=== PATIENT | male | born 1970 | race Two or more races ===

== ENCOUNTER 2018-05-06 18:11 | Emergency (ER) | payer BC ==
[~2018-05-06] VITALS: Ht 177.8 cm; Wt 90.7 kg
[2018-05-06 18:15] VITALS: BP 129/66
--- NOTE | 2018-05-06 18:21 | Emergency Room Report ---
History of Present Illness General Chief Complaint: Abdominal Pain Source: Patient, EMS Present Illness HPI Patient presents with complaints of right-sided flank pain radiation to the lower abdomen Pain came on several hours prior to arrival however has intensified sharp 10 out of 10 with radiation as noted Denies any vomiting but does feel mildly nauseous denies any diarrhea denies any fevers or chills denies any dysuria frequency Patient has not had pain like this before Denies any change with position Allergies: Coded Allergies: No Known Allergies (Unverified , 05/06/18) Patient History Past Medical History: see triage record Pertinent Family History: none Reviewed Nursing Documentation: PMH: Agreed; PSxH: Agreed Nursing Documentation-PMH Past Medical History: No Stated History Review of Systems All Other Systems: negative except mentioned in HPI Physical Exam Vital Signs Date Time Temp Pulse Resp B/P (MAP) Pulse Ox O2 Delivery O2 Flow Rate FiO2 05/06/18 18:07 97.9 62 18 142/77 98 Room Air 97.9 Sp02 EP Interpretation: reviewed, normal General Appearance: moderate distress - In acute pain Head: normocephalic, atraumatic Eyes: bilateral eye PERRL, bilateral eye EOMI ENT: hearing grossly normal, normal pharynx Neck: supple, thyroid normal Respiratory: chest non-tender, lungs clear Cardiovascular #1: regular rate, rhythm Gastrointestinal: non tender, soft, other - Subjectively points to the right lower flank region with radiation to the mid abdomen Musculoskeletal: normal inspection Neurologic: alert, oriented x3, responsive Skin: normal color, no rash Lymphatic: no adenopathy Medical Decision Making Diagnostic Impression: Primary Impression: Renal colic on right side ER Course With the history exam and presentation, multiple differentials considered, including but not limited to appendicitis, gastritis, cholecystitis, diverticulitis Patient had CT imaging done which does show a right-sided 2.6 mm UVJ stone on the right side this is causing some hydronephrosis Patient's blood work performed Creatinine level was mildly elevated at 1.6 Patient at this time resting comfortably and significantly improved Given the size and location of the stone, Given the patient's improved status with pain,patient will have initial conservative outpatient trial Was provided with referral to urology If there is any increased pain or discomfort patient understands to return to the emergency room Labs Test 05/06/18 18:16 White Blood Count 10.7 K/UL (4.8-10.8) Red Blood Count 5.07 M/UL (4.70-6.10) Hemoglobin 15.6 G/DL (14.2-18.0) Hematocrit 45.7 % (42.0-52.0) Mean Corpuscular Volume 90 FL (80-99) Mean Corpuscular Hemoglobin 30.8 PG (27.0-31.0) Mean Corpuscular Hemoglobin Concent 34.1 G/DL (32.0-36.0) Red Cell Distribution Width 11.0 % (11.6-14.8) Platelet Count 266 K/UL (150-450) Mean Platelet Volume 7.3 FL (6.5-10.1) Neutrophils (%) (Auto) 85.1 % (45.0-75.0) Lymphocytes (%) (Auto) 12.4 % (20.0-45.0) Monocytes (%) (Auto) 1.8 % (1.0-10.0) Eosinophils (%) (Auto) 0.1 % (0.0-3.0) Basophils (%) (Auto) 0.6 % (0.0-2.0) Urine Color Yellow Urine Appearance Clear Urine pH 5 (4.5-8.0) Urine Specific [place] 1.025 (1.005-1.035) Urine Protein 1+ (NEGATIVE) Urine Glucose (UA) Negative (NEGATIVE) Urine Ketones 2+ (NEGATIVE) Urine Occult Blood 4+ (NEGATIVE) Urine Nitrite Negative (NEGATIVE) Urine Bilirubin Negative (NEGATIVE) Urine Urobilinogen Normal MG/DL (0.0-1.0) Urine Leukocyte Esterase Negative (NEGATIVE) Urine RBC 5-10 /HPF (0 - 0) Urine WBC 0-2 /HPF (0 - 0) Urine Squamous Epithelial Cells None /LPF (NONE/OCC) Urine Bacteria Occasional /HPF (NONE) Sodium Level 140 MMOL/L (136-145) Potassium Level 3.6 MMOL/L (3.5-5.1) Chloride Level 103 MMOL/L (98-107) Carbon Dioxide Level 20 MMOL/L (21-32) Anion Gap 17 mmol/L (5-15) Blood Urea Nitrogen 12 mg/dL (7-18) Creatinine 1.6 MG/DL (0.55-1.30) Estimat Glomerular Filtration Rate 46.6 mL/min (>60) Glucose Level 127 MG/DL (74-106) Calcium Level 9.5 MG/DL (8.5-10.1) Total Bilirubin 0.3 MG/DL (0.2-1.0) Aspartate Amino Transf (AST/SGOT) 31 U/L (15-37) Alanine Aminotransferase (ALT/SGPT) 71 U/L (12-78) Alkaline Phosphatase 50 U/L (46-116) Total Protein 8.3 G/DL (6.4-8.2) Albumin 4.4 G/DL (3.4-5.0) Globulin 3.9 g/dL Albumin/Globulin Ratio 1.1 (1.0-2.7) Lipase 169 U/L (73-393) CT/MRI/US Diagnostic Results CT/MRI/US Diagnostic Results : Impression CT abdomen pelvis: Right-sided UVJ stone 2.6 mm right-sided hydronephrosis Last Vital Signs Date Time Temp Pulse Resp B/P (MAP) Pulse Ox O2 Delivery O2 Flow Rate FiO2 05/06/18 18:07 97.9 62 18 142/77 98 Room Air 97.9 Status: improved Disposition: HOME, SELF-CARE Condition: Improved Scripts Tamsulosin Hcl (TAMSULOSIN HCL*) 0.4 Mg Cap.er.24h 0.4 MG ORAL BEDTIME, #6 CAP Prov: Yosi Grullon DO 05/06/18 Acetaminophen With Codeine (T#3) (TYLENOL #3 TAB*) Y Tab 1 TAB ORAL Q8H PRN for For Pain, #15 TAB Prov: Yosi Grullon DO 05/06/18 Ibuprofen* (MOTRIN*) 600 Mg Tablet 600 MG ORAL Q8H PRN for For Pain, #20 TAB 0 Refills Prov: Yosi Grullon DO 05/06/18 Additional Instructions: Patient is provided with the discharge instructions notified to follow up with primary doctor in the next 2-3 days otherwise return to the er with any worsening symptoms. Please note that this report is being documented using [employer] technology. This can lead to erroneous entry secondary to incorrect interpretation by the dictating instrument. Yosi Grullon DO May 06, 2018 18:21
[2018-05-06] MEDS ORDERED: Ketorolac 30mg Inj IV ONE ×2 (18:30→19:30)
[2018-05-06] MEDS ORDERED: Morphine Sulfate 4mg/ml Inj (IV USE ONLY) IVP ONE (18:30)
[2018-05-06 18:42] LABS: APPEARANCE,URINE CLEAR; BILIRUBIN, URINE NEGATIVE (NEGATIVE); GLUCOSE, URINE (UA) NEGATIVE (NEGATIVE); KETONES,URINE 2+ (NEGATIVE); LEUKOCYTE ESTERASE ,URINE NEGATIVE (NEGATIVE); NITRITE,URINE NEGATIVE (NEGATIVE); PH,URINE 5 (4.5-8.0); PROTEIN,URINE 1+ (NEGATIVE); UROBILINOGEN,URINE NORMAL MG/DL (0.0-1.0)
[2018-05-06 18:45] LABS: COLOR,URINE YELLOW
[2018-05-06 18:55] LABS: HEMATOCRIT 45.7 % (42.0-52.0); HEMOGLOBIN 15.6 G/DL (14.2-18.0); MEAN CORPUSCULAR VOLUME 90 FL (80-99); PLATELET COUNT 266 K/UL (150-450); RED BLOOD COUNT 5.07 M/UL (4.70-6.10); WHITE BLOOD COUNT 10.7 K/UL (4.8-10.8)
[2018-05-06 18:56] LABS: BASOPHILS % (AUTO) 0.6 % (0.0-2.0); EOSINOPHILS % (AUTO) 0.1 % (0.0-3.0); LYMPHOCYTES % (AUTO) 12.4 % (20.0-45.0); MONOCYTES % (AUTO) 1.8 % (1.0-10.0); NEUTROPHILS % (AUTO) 85.1 % (45.0-75.0)
[2018-05-06 19:05] LABS: ANION GAP 17 mmol/L (5-15); BLOOD UREA NITROGEN 12 mg/dL (7-18); CALCIUM 9.5 MG/DL (8.5-10.1); CARBON DIOXIDE 20 MMOL/L (21-32); CHLORIDE 103 MMOL/L (98-107); CREATININE 1.6 MG/DL (0.55-1.30); POTASSIUM 3.6 MMOL/L (3.5-5.1); SODIUM 140 MMOL/L (136-145)
[2018-05-06 19:10] LABS: ALANINE AMINOTRANSFERASE 71 U/L (12-78); ALBUMIN 4.4 G/DL (3.4-5.0); ALBUMIN/GLOBULIN RATIO 1.1 (1.0-2.7); ALKALINE PHOSPHATASE 50 U/L (46-116); ASPARTATE AMINO TRANSFERASE 31 U/L (15-37); BILIRUBIN,TOTAL 0.3 MG/DL (0.2-1.0)
[2018-05-06 19:17] VITALS: BP 123/64
[2018-05-06] MEDS ORDERED: HYDROmorphone 1mg/ml Carpuject IVP ONE ×2 (19:30)
[2018-05-06] MEDS ORDERED: Tamsulosin 0.4mg cap ORAL ONE (19:30)
[2018-05-06] MEDS ORDERED: TAMSULOSIN HCL0.4 MG ORAL (20:40)
[2018-05-06] MEDS ORDERED: IBUPROFEN600 MG ORAL (20:40)
[2018-05-06] MEDS ORDERED: ACETAMINOPHEN-1 EAC1 ORAL (20:40)
[2018-05-06 20:47] VITALS: BP 133/78
--- NOTE | 2018-05-07 09:28 | Diagnostic Imaging Report ---
Indication: Right flank pain Technique: Noncontrast CT of the abdomen and pelvis utilizing automated exposure control. Axial, sagittal and coronal reformats presented. CT dose: Total DLP 1036.56 mGycm; CTDI vol 17.93 mGy Comparison: None Findings: Please note that evaluation of the abdominal and pelvic viscera and vascular structures is limited without the use of intravenous and oral contrast. Within these limitations the following observations are made: Minimal dependent atelectatic changes noted in the posterior lower lobe. Heart size within normal limits. No pericardial effusion. Noncontrast evaluation of the liver, spleen, gallbladder, adrenal glands and pancreas grossly unremarkable. There is a 2 to 3 mm stone at the right ureterovesicular junction (series 3 image 138) the results in mild right-sided hydronephrosis and mild perinephric stranding. Additional subcentimeter calyceal nonobstructing stones noted in the right kidney. A subcentimeter nonobstructing stone is also noted in the lower pole of the left kidney. There is no evidence of obstructive uropathy on the left. Bladder wall appears slightly thickened circumferentially. This may be exaggerated by underdistention. Prostate is normal in size with some coarse central calcifications. There is no free intraperitoneal air or fluid. No evidence of bowel obstruction or inflammation. Appendix is normal. Abdominal aorta normal in caliber. No bulky/conglomerate pathologically enlarged lymphadenopathy identified. There is no acute osseous abnormality. IMPRESSION: Limited exam without intravenous and oral contrast. Within these limitations: * 2-3 mm stone at the right ureterovesicular junction resulting in mild right-sided hydronephrosis and right perinephric stranding. Correlation with urinalysis recommended to assess for superimposed infection. * Additional bilateral nonobstructing subcentimeter renal calculi. No evidence of hydronephrosis on the left. This corresponds with the statrad preliminary report. The CT scanner at [facility] is accredited by the [employer] and the scans are performed using protocols designed to limit radiation exposure to as low as reasonably achievable to attain images of sufficient resolution adequate for diagnostic evaluation.
== END 2018-05-06 20:49 | disposition home or self-care (01) ==
LOC: EDBD 18:11 → EMR 18:48
DX: N13.2 Hydronephrosis with renal and ureteral calculous obstruction (principal)
CPT/HCPCS: 36415; 74176; 80053; 81003; 83690; 85025; 96361; 96374; 96375; 96376; 99285; J1170; J1885; J2270; J2405